=== PATIENT | male | born 1930 | race Caucasian/White ===

== ENCOUNTER 2017-03-29 13:54 | Emergency (ER) | payer MEDICARE ==
[~2017-03-29] VITALS: Wt 77.1 kg
[2017-03-30 08:11] LABS: HIV 1+2 AB + HIV1 P24 AG Non Reactive (Non Reactive)
== END 2017-03-29 14:02 | disposition expired ==
LOC: ED 13:54
PROVIDERS: Emergency Medicine
DX: I46.9 Cardiac arrest, cause unspecified (principal)